=== PATIENT | female | born 1970 | race Caucasian/White ===

== ENCOUNTER 2017-07-08 12:30 | Observation (INO) | payer BC, OTHER ==
[2017-07-08] MEDS ORDERED: Sodium Chloride 0.9% 1,000 ML IV STA (13:08)
--- NOTE | 2017-07-08 13:33 | ED PDOC ---
HPI: General Adult Time Seen by Provider: 07/08/17 12:59 Chief Complaint (Nursing): Weakness/Neurological Deficit Chief Complaint (Provider): headache, near syncope History Per: Patient Additional Complaint(s): 37-year-old female with history of MS presents to emergency department with dizziness and headache that started earlier today. Patient states she woke up this morning "feeling weird" and she had 2 near syncopal episodes at home. Patient states she felt chest pain and palpitations right before each syncopal episode this AM. She states she could feel herself falling and stopped herself each time. She did not sustain any traumatic injury or lose consciousness as a result of near syncopal episodes. Patient states family member drove her to PMD office and PMD advised that she come to ED. Upon arrival patient has headache and pain to left ear and eye with no vision changes. Patient denies chest pain or palpitations upon arrival. PMD: Dr. Monroe Past Medical History Reviewed: Historical Data, Nursing Documentation, Vital Signs Vital Signs: Last Vital Signs Temp 98.1 F 07/08/17 12:46 Pulse 74 07/08/17 12:46 Resp 18 07/08/17 12:46 BP 145/92 H 07/08/17 12:46 Pulse Ox 99 07/08/17 15:21 - Medical History PMH: Anxiety, Asthma, Depression, Kidney Stones - Surgical History Surgical History: Cholecystectomy, - Family History Family History: States: No Known Family Hx - Living Arrangements Living Arrangements: With Family - Social History Current smoker - smoking cessation education provided: No Alcohol: None Drugs: Denies - Home Medications Home Medications: Ambulatory Orders Medication Instructions Recorded No Known Home Med 07/08/17 - Allergies Allergies/Adverse Reactions: Allergies Allergy/AdvReac Type Severity Reaction Status Date / Time latex Allergy RASH Verified 06/20/15 00:55 Review of Systems ROS Statement: Except As Marked, All Systems Reviewed And Found Negative Constitutional: Negative for: Fever, Chills, Weakness ENT: Positive for: Ear Pain (left) Cardiovascular: Positive for: Chest Pain, Palpitations Respiratory: Negative for: Cough Gastrointestinal: Negative for: Nausea, Vomiting Neurological: Positive for: Headache, Dizziness, Other (near syncope). Negative for: Weakness, Numbness, Incoordination, Change in Speech, Confusion, Seizures Physical Exam - Reviewed Nursing Documentation Reviewed: Yes Vital Signs Reviewed: Yes - Physical Exam Appears: Positive for: Well, Non-toxic, No Acute Distress Head Exam: Positive for: ATRAUMATIC, NORMAL INSPECTION, NORMOCEPHALIC Skin: Positive for: Normal Color. Negative for: Rash Eye Exam: Positive for: Normal appearance, EOMI, PERRL. Negative for: Nystagmus ENT: Positive for: Normal ENT Inspection Neck: Positive for: Painless ROM Cardiovascular/Chest: Positive for: Regular Rate, Rhythm Respiratory: Positive for: Normal Breath Sounds. Negative for: Respiratory Distress Gastrointestinal/Abdominal: Positive for: Soft. Negative for: Tenderness Back: Positive for: Normal Inspection Extremity: Positive for: Normal ROM Neurologic/Psych: Positive for: Alert, accountant cost II-XII (grossly intact), Oriented, Gait (steady). Negative for: Motor/Sensory Deficits, Aphasia, Facial Droop - Laboratory Results Result Diagrams: 07/08/17 13:48 07/08/17 13:48 - ECG Interpretation Of ECG: NSR 83 bpm, no acute finding, reviewed by PA and ED attending O2 Sat by Pulse Oximetry: 99 Pulse Ox Interpretation: Normal - Other Rad CXR X-Ray: Interpreted by Me, Viewed By Me X-Ray Interpretation: no acute finding CT head X-Ray: Read By Radiologist X-Ray Interpretation: no acute finding Medical Decision Making Medical Decision Makin47 year old with headache and near syncope episode x 2 this AM Plan: CT head EKG CBC CMP Trop IVF Case was d/w Dr. Monroe, PMD, who states to admit patient. Dr. Burden, hsopitalist to admit. Call also placed to Dr. Elizondo, patient's neurologist. He does not see patients in hospital setting and asked that we contact Dr. Camilo for consult. Case was d/w Dr. Nguyen covering for Dr. Camilo, she states to order MRI brain with contrast. Patient is aware of and agrees with admission. Disposition - Clinical Impression Clinical Impression: Near syncope, Chest pain - Patient ED Disposition Is Patient to be Admitted: Yes - Disposition Disposition Time: 16:15 Condition: FAIR - Pt Status Changed To: Hospital Disposition Of: Observation - POA Present On Arrival: None Results - Lab Results Lab Results: 07/08/17 07/08/17 13:48 13:48 WBC 7.0 RBC 4.66 Hgb 14.5 Hct 40.8 MCV 87.6 MCH 31.2 H MCHC 35.6 RDW 12.2 Plt Count 224 MPV 8.9 Neut % (Auto) 63.7 Lymph % (Auto) 28.6 [place] % (Auto) 5.6 Eos % (Auto) 1.0 Baso % (Auto) 1.1 Neut # (Auto) 4.5 Lymph # (Auto) 2.0 [place] # (Auto) 0.4 Eos # (Auto) 0.1 Baso # (Auto) 0.1 Sodium 145 Potassium 4.2 Chloride 105 Carbon Dioxide 25 Anion Gap 19 BUN 9 Creatinine 0.6 L Est GFR ( Amer) > 60 Est GFR (Non-Af Amer) > 60 Random Glucose 100 Calcium 9.6 Total Bilirubin 1.9 H AST 121 H ALT 114 H D Alkaline Phosphatase 81 Troponin I 0.0120 Total Protein 8.0 Albumin 4.3 Globulin 3.7 Albumin/Globulin Ratio 1.2
[2017-07-08 14:06] LABS: BASO # 0.1 K/uL (0.0-0.2); BASO % 1.1 % (0.0-2.0); EOS # 0.1 K/uL (0.0-0.7); HEMOGLOBIN 14.5 g/dL (12.0-16.0); LYMPH % 28.6 % (20.0-40.0); MEAN CELL VOLUME 87.6 fl (81.0-99.0); MEAN CORPUSCULAR HEMOGLOBIN 31.2 pg (27.0-31.0); MEAN CORPUSCULAR HGB CONC 35.6 g/dL (33.0-37.0); MEAN PLATELET VOLUME 8.9 fl (7.2-11.7); MONO # 0.4 K/uL (0.0-0.8); MONO % 5.6 % (0.0-10.0); NEUT # 4.5 K/uL (1.8-7.0); NEUT % 63.7 % (50.0-75.0); NRBC % 0.1 % (0.0-0.0); RBC 4.66 Mil/uL (3.80-5.20); RED CELL DISTRIBUTION WIDTH 12.2 % (11.5-14.5)
--- NOTE | 2017-07-08 14:25 | RAD ---
HISTORY: Chest pain COMPARISON: 05/17/2014 FINDINGS: LUNGS: No active pulmonary disease. PLEURA: No significant pleural effusion identified, no pneumothorax apparent. CARDIOVASCULAR: No radiographic findings to suggest acute or significant cardiovascular disease. OSSEOUS STRUCTURES: Stable position of Anders eleuterio. Stable scoliosis VISUALIZED UPPER ABDOMEN: Normal. OTHER FINDINGS: None. IMPRESSION: No active disease. No significant interval change compared to the prior examination(s).
--- NOTE | 2017-07-08 14:42 | CT ---
PROCEDURE: CT HEAD WITHOUT CONTRAST. HISTORY: headache, near syncope COMPARISON: Unenhanced head CT 06/20/2015. TECHNIQUE: Axial computed tomography images were obtained through the head/brain without intravenous contrast. Radiation dose: Total exam DLP = 799.60 mGy-cm. This CT exam was performed using one or more of the following dose reduction techniques: Automated exposure control, adjustment of the mA and/or kV according to patient size, and/or use of iterative reconstruction technique. FINDINGS: HEMORRHAGE: No intracranial hemorrhage. BRAIN: Normal espinoza-white matter differentiation and density are appreciated throughout the cerebrum and cerebellum with the brainstem appearing unremarkable as well. There is no mass effect. There is no suspicious extra-axial fluid collection and the midline brain anatomy appears diffusely unremarkable. VENTRICLES: Unremarkable. No hydrocephalus. CALVARIUM: Unremarkable. PARANASAL SINUSES: Unremarkable as visualized. No significant inflammatory changes. MASTOID AIR CELLS: Unremarkable as visualized. No inflammatory changes. OTHER FINDINGS: None. IMPRESSION: Stable, unremarkable unenhanced head CT 07/08/2017.
[2017-07-08 15:45] LABS: ALB/GLOB RATIO 1.2 (1.0-2.1); ALBUMIN 4.3 g/dL (3.5-5.0); ALT/SGPT 114 U/L (9-52); AST/SGOT 121 U/L (14-36); BLOOD UREA NITROGEN 9 mg/dl (7-17); CALCIUM 9.6 mg/dL (8.4-10.2); GFR AFRICAN-AMERICAN > 60; GFR NON-AFRICAN AMERICAN > 60
--- NOTE | 2017-07-08 16:35 | CP.PCM.HP ---
History of Present Illness - History of Present Illness History of Present Illness: 47 yo female with history of MS came in because of sudden onset of dizziness earlier today causing her to almost fall down lasting for several seconds accompanied with palpitation, nausea and cold sweat. She was able to recover spontaneously but condition recurred after about 10 minutes. She denied losing consciousness, chest pain or SOB. Present on Admission - Present on Admission Any Indicators Present on Admission: No History of DVT/PE: No History of Uncontrolled Diabetes: No Urinary Catheter: No Decubitus Ulcer Present: No Review of Systems - Review of Systems All systems: reviewed and no additional remarkable complaints except (aside from those mentioned above, 12 point system review were negative by me) Past Patient History - Past Social History Smoking Status: Never Smoked Alcohol: None Drugs: Denies Home Situation {Lives}: With Family - CARDIAC Hx Cardiac Disorders: No - PULMONARY Hx Asthma: Yes - NEUROLOGICAL Hx Multiple Sclerosis: Yes (diagnosed 10 yrs ago) - HEENT Hx HEENT Problems: No - RENAL Hx Kidney Stones: Yes - ENDOCRINE/METABOLIC Hx Endocrine Disorders: No - HEMATOLOGICAL/ONCOLOGICAL Hx Blood Disorders: No - INTEGUMENTARY Hx Dermatological Problems: No - MUSCULOSKELETAL/RHEUMATOLOGICAL Hx Musculoskeletal Disorders: No - GASTROINTESTINAL Hx Gastrointestinal Disorders: No - GENITOURINARY/GYNECOLOGICAL Hx Genitourinary Disorders: No - PSYCHIATRIC Hx Anxiety: Yes Hx Depression: Yes - SURGICAL HISTORY Hx Surgeries: Yes Hx Section: Yes Hx Cholecystectomy: Yes Hx Orthopedic Surgery: Yes (Anders Jorge Luis placement for scoliosis) Other/Comment: kidney stone removal, ovarian cyst surgery - ANESTHESIA Hx Anesthesia: Yes Hx Anesthesia Reactions: No Meds Allergies/Adverse Reactions: Allergies Allergy/AdvReac Type Severity Reaction Status Date / Time latex Allergy RASH Verified 06/20/15 00:55 Physical Exam - Constitutional Appears: No Acute Distress - Head Exam Head Exam: ATRAUMATIC - Eye Exam Eye Exam: absent: Scleral icterus - ENT Exam ENT Exam: Mucous Membranes Moist - Neck Exam Neck exam: Negative for: Meningismus - Respiratory Exam Respiratory Exam: absent: Rales, Rhonchi, Wheezes, Respiratory Distress - Cardiovascular Exam Cardiovascular Exam: REGULAR RHYTHM, +S1, +S2 - GI/Abdominal Exam GI & Abdominal Exam: Soft. absent: Tenderness - Rectal Exam Rectal Exam: Deferred - Extremities Exam Extremities exam: Negative for: calf tenderness, pedal edema - Back Exam Back exam: absent: tenderness - Neurological Exam Neurological exam: Alert, Oriented x3 - Psychiatric Exam Psychiatric exam: Normal Affect - Skin Skin Exam: Dry, Intact Results - Vital Signs Recent Vital Signs: Last Vital Signs Temp 98.1 F 07/08/17 12:46 Pulse 74 07/08/17 12:46 Resp 18 07/08/17 12:46 BP 145/92 H 07/08/17 12:46 Pulse Ox 99 07/08/17 16:16 - Labs Result Diagrams: 07/08/17 13:48 07/08/17 13:48 Labs: Laboratory Results - last 24 hr 07/08/17 07/08/17 13:48 13:48 WBC 7.0 RBC 4.66 Hgb 14.5 Hct 40.8 MCV 87.6 MCH 31.2 H MCHC 35.6 RDW 12.2 Plt Count 224 MPV 8.9 Neut % (Auto) 63.7 Lymph % (Auto) 28.6 [place] % (Auto) 5.6 Eos % (Auto) 1.0 Baso % (Auto) 1.1 Neut # (Auto) 4.5 Lymph # (Auto) 2.0 [place] # (Auto) 0.4 Eos # (Auto) 0.1 Baso # (Auto) 0.1 Sodium 145 Potassium 4.2 Chloride 105 Carbon Dioxide 25 Anion Gap 19 BUN 9 Creatinine 0.6 L Est GFR ( Amer) > 60 Est GFR (Non-Af Amer) > 60 Random Glucose 100 Calcium 9.6 Total Bilirubin 1.9 H AST 121 H ALT 114 H D Alkaline Phosphatase 81 Troponin I 0.0120 Total Protein 8.0 Albumin 4.3 Globulin 3.7 Albumin/Globulin Ratio 1.2 Assessment & Plan - Assessment and Plan (Free Text) Assessment: 47 yo female with history of MS came in because of sudden onset of dizziness earlier today causing her to almost fall down lasting for several seconds accompanied with palpitation, nausea and cold sweat. She was able to recover spontaneously but condition recurred after about 10 minutes. She denied losing consciousness, chest pain or SOB. 1. Pre-syncope probably secondary to vasovagal effect monitor in telemetry serial Troponin and EKG check for orthostatic changes in BP CT of head: unremarkable neuro consult with Dr Nguyen (called by ER) 2. MS stable
[2017-07-08] MEDS ORDERED: Gadodiamide 287 MG/ML VIAL (15ML) IV ONE (16:50)
--- NOTE | 2017-07-08 18:40 | MRI ---
PROCEDURE: MRI BRAIN WITH AND WITHOUT CONTRAST HISTORY: Headache. Near syncope. COMPARISON: Comparison made with prior CT scan brain earlier same day. TECHNIQUE: Multiplanar, multisequence MR images of the brain were obtained with and without intravenous contrast enhancement. 18 cc Omniscan injected for this examination. FINDINGS: HEMORRHAGE: No acute parenchymal, subarachnoid or extra-axial hemorrhage. No evidence of hemosiderin deposition seen on gradient echo weighted sequence. DWI: No evidence of an acute or early subacute infarction seen on diffusion imaging. . BRAIN PARENCHYMA: There are multiple small focal areas of nonenhancing nonspecific increased T2 signal scattered about the deep and subcortical white matter both cerebral hemispheres nonspecific. . A few tiny foci of increased T2 signal within the brainstem present. Questionable tiny focus of increased T2 signal left cerebellar hemisphere. . Findings may represent chronic sequela of small vessel disease however differential diagnosis would include chronic sequela of migraine headache, old trauma or post infectious/inflammatory etiologies. Atypical presentation of a demyelinating disease process not excluded. ENHANCEMENT: No enhancing parenchymal nor extra-axial masses or collections. No evidence of unusual meningeal enhancement. VENTRICLES: No obstructive hydrocephalus. CRANIUM: No acute calvarial abnormalities. ORBITS: Orbits and contents unremarkable. PARANASAL SINUSES/MASTOIDS: Clear VASCULAR SYSTEM: Visualized major vascular flow voids at skull base patent. OTHER FINDINGS: None . IMPRESSION: The no evidence of acute intracranial hemorrhage or infarction. There are multiple tiny focal areas of increased T2 signal scattered about the deep and subcortical white matter both cerebral hemispheres. None of the changes exhibit restricted diffusion or contrast enhancement. In addition, there are a few tiny foci of increased T2 signal in the brainstem and possibly left cerebellar hemisphere. None of these changes exhibit restricted diffusion or contrast enhancement. Rule out chronic sequela of small vessel disease. See above discussion for additional differential diagnostic considerations.
[2017-07-09 06:16] LABS: BASO # 0.1 K/uL (0.0-0.2); BASO % 0.9 % (0.0-2.0); EOS # 0.1 K/uL (0.0-0.7); EOS % 2.2 % (0.0-4.0); LYMPH # 2.7 K/uL (1.0-4.3); LYMPH % 41.4 % (20.0-40.0); MEAN CELL VOLUME 89.9 fl (81.0-99.0); MEAN CORPUSCULAR HEMOGLOBIN 31.2 pg (27.0-31.0); MEAN CORPUSCULAR HGB CONC 34.7 g/dL (33.0-37.0); MEAN PLATELET VOLUME 8.9 fl (7.2-11.7); MONO # 0.7 K/uL (0.0-0.8); NEUT # 2.9 K/uL (1.8-7.0); NEUT % 44.5 % (50.0-75.0); NRBC % 0.2 % (0.0-0.0); RBC 4.19 Mil/uL (3.80-5.20); WHITE BLOOD COUNT 6.5 K/uL (4.8-10.8)
[2017-07-09 06:39] LABS: ALB/GLOB RATIO 1.1 (1.0-2.1); ALBUMIN 3.6 g/dL (3.5-5.0); ALT/SGPT 97 U/L (9-52); AST/SGOT 78 U/L (14-36); BILIRUBIN,DIRECT 0.2 mg/ml (0.0-0.4); BLOOD UREA NITROGEN 13 mg/dl (7-17); CALCIUM 9.4 mg/dL (8.4-10.2); GFR AFRICAN-AMERICAN > 60; GFR NON-AFRICAN AMERICAN > 60
[2017-07-09] MEDS: Pantoprazole 40 mg EC Tab PO SCH (09:23)
--- NOTE | 2017-07-09 10:45 | US ---
HISTORY: elevated LFTs COMPARISON: None. TECHNIQUE: Sonographic evaluation of the right upper quadrant of the abdomen. FINDINGS: LIVER: Measures 15.8 cm in length. Hepatopedal blood flow. Fatty infiltration manifest ultrasonographically as increased echogenicity of the liver parenchyma. No mass. No intrahepatic bile duct dilatation. GALLBLADDER: Status post cholecystectomy. No abnormality is seen in the gallbladder fossa. COMMON BILE DUCT: Measures 3.5 mm. No stones. No dilatation. PANCREAS: Unremarkable as visualized. No mass. No ductal dilatation. RIGHT KIDNEY: Measures 5.5 x 10.5 cm in length. Normal echogenicity. No calculus, mass, or hydronephrosis. AORTA: No aneurysmal dilatation. IVC: Unremarkable. OTHER FINDINGS: None . IMPRESSION: Stable hepatic steatosis without focal abnormality. No significant interval change compared to the prior examination(s).
--- NOTE | 2017-07-09 11:46 | CARD ---
APPROVED REPORT EKG Measurement Heart [id number] ID [id number] <Conclusion> Normal sinus rhythm Inferior infarct, age undetermined Cannot rule out Anterior infarct, age undetermined Abnormal ECG
[2017-07-09 17:12] LABS: BARBITURATES, UR NEGATIVE (NEGATIVE); BENZODIAZEPINES, UR NEGATIVE (NEGATIVE); OPIATES, UR NEGATIVE (NEGATIVE); PHENCYCLIDINE, UR NEGATIVE (NEGATIVE)
[2017-07-09 17:21] LABS: HDL CHOLESTEROL 42 MG/DL (30-70)
[2017-07-09 17:32] LABS: LDL CHOLESTEROL 117 mg/dL (0-129)
[2017-07-09 17:36] LABS: PARTIAL THROMBOPLASTIN TIME 30.2 Seconds (25.6-37.1); PROTHROMBIN TIME 11.5 Seconds (9.8-13.1)
--- NOTE | 2017-07-09 17:44 | CP.PCM.CON ---
History of Present Illness - History of Present Illness History of Present Illness: 47 yr old right handed woman with a history of being diagnosed with MS about 10 years ago, who now presents with new onset dizziness and a syncopal spell. MIss salazar says that about 10 years ago, she started to have word finding difficulty with confusion and after seeing , and obtinaing MRI Brain, was found to have MS, told it was mild. She never started medications , but last summer she had a resurgence of forgetfulness, with some tingling in her legs bilaterally. MRI brain was redone and it showed multiple enhancing lesions, in the frontal lobe and throughout cortex. It is unclear if she had MRI c spine and the results. Today, she says that she had some blurriness of vision as well, but it resolved. She denies headaches, aphasia, weakness, ataxia or urinary incontinence. PMH /pSH: as above. FH/SH: , has a 20 yr old daughter. All: nkda ON exam: normal neurological examination. speech fluent. no aphasia, no alexia, no apraxia. NO ana maria, no visual field cuts. +2 dtr ul and ll bl. Toes downgoing, no clonus. Past Patient History - Past Medical History & Family History Past Medical History?: Yes - Past Social History Smoking Status: Never Smoked - CARDIAC Hx Cardiac Disorders: No - PULMONARY Hx Respiratory Disorders: Yes Hx Asthma: Yes - NEUROLOGICAL Hx Neurological Disorder: Yes Hx Multiple Sclerosis: Yes (diagnosed 10 yrs ago) - HEENT Hx HEENT Problems: No - RENAL Hx Chronic Kidney Disease: Yes Hx Kidney Stones: Yes - ENDOCRINE/METABOLIC Hx Endocrine Disorders: No - HEMATOLOGICAL/ONCOLOGICAL Hx Blood Disorders: No - INTEGUMENTARY Hx Dermatological Problems: No - MUSCULOSKELETAL/RHEUMATOLOGICAL Hx Musculoskeletal Disorders: No Hx Falls: No - GASTROINTESTINAL Hx Gastrointestinal Disorders: No - GENITOURINARY/GYNECOLOGICAL Hx Genitourinary Disorders: No - PSYCHIATRIC Hx Psychophysiologic Disorder: Yes Hx Anxiety: Yes Hx Depression: Yes Hx Substance Use: No - SURGICAL HISTORY Hx Surgeries: Yes Hx Section: Yes Hx Cholecystectomy: Yes Hx Orthopedic Surgery: Yes (Anders Jorge Luis placement for scoliosis) Other/Comment: kidney stone removal, ovarian cyst surgery - ANESTHESIA Hx Anesthesia: Yes Hx Anesthesia Reactions: No Hx Malignant Hyperthermia: No Has any member of the family had a problem w/ anesthesia?: No Meds Allergies/Adverse Reactions: Allergies Allergy/AdvReac Type Severity Reaction Status Date / Time latex Allergy RASH Verified 07/08/17 19:37 - Medications Medications: Current Medications Pantoprazole Sodium (Protonix Ec Tab) 40 mg PO DAILY SHIRAZ Last Admin: 07/09/17 09:23 Dose: 40 mg Results - Vital Signs Recent Vital Signs: Last Vital Signs Temp 97.9 F 07/09/17 16:15 Pulse 78 07/09/17 16:15 Resp 16 07/09/17 16:15 BP 113/76 07/09/17 16:15 Pulse Ox 97 07/09/17 16:15 - Labs Result Diagrams: 07/09/17 04:20 07/09/17 04:20 Labs: Laboratory Results - last 24 hr 07/08/17 07/09/17 07/09/17 21:35 04:20 04:20 WBC 6.5 RBC 4.19 Hgb 13.0 Hct 37.6 MCV 89.9 D MCH 31.2 H MCHC 34.7 RDW 12.0 Plt Count 189 MPV 8.9 Neut % (Auto) 44.5 L Lymph % (Auto) 41.4 H [place] % (Auto) 11.0 H Eos % (Auto) 2.2 Baso % (Auto) 0.9 Neut # (Auto) 2.9 Lymph # (Auto) 2.7 [place] # (Auto) 0.7 Eos # (Auto) 0.1 Baso # (Auto) 0.1 Sodium 145 Potassium 4.0 Chloride 106 Carbon Dioxide 24 Anion Gap 19 BUN 13 Creatinine 0.7 Est GFR ( Amer) > 60 Est GFR (Non-Af Amer) > 60 Random Glucose 125 H Calcium 9.4 Total Bilirubin 1.3 Direct Bilirubin 0.2 AST 78 H D ALT 97 H Alkaline Phosphatase 67 Troponin I < 0.0120 < 0.0120 Total Protein 6.8 Albumin 3.6 Globulin 3.2 Albumin/Globulin Ratio 1.1 Urine HCG, Qual 07/09/17 16:37 WBC RBC Hgb Hct MCV MCH MCHC RDW Plt Count MPV Neut % (Auto) Lymph % (Auto) [place] % (Auto) Eos % (Auto) Baso % (Auto) Neut # (Auto) Lymph # (Auto) [place] # (Auto) Eos # (Auto) Baso # (Auto) Sodium Potassium Chloride Carbon Dioxide Anion Gap BUN Creatinine Est GFR ( Amer) Est GFR (Non-Af Amer) Random Glucose Calcium Total Bilirubin Direct Bilirubin AST ALT Alkaline Phosphatase Troponin I Total Protein Albumin Globulin Albumin/Globulin Ratio Urine HCG, Qual Negative Assessment & Plan - Assessment and Plan (Free Text) Assessment: 47 yr old woman with a diagnosis of MS, who now doesnt have any symptoms at this time. In addition, her MRI Brain is normal. Plan: 1. Discharge home, and follow up with private neurologist. MD Bethany, DPN
--- NOTE | 2017-07-09 19:52 | CP.PCM.PN ---
Subjective - Date & Time of Evaluation Date of Evaluation: 07/09/17 Time of Evaluation: 11:45 - Subjective Subjective: Patient seen and examined. Admitted feeling better although still having mild dizziness when she went to the bathroom today Objective - Vital Signs/Intake and Output Vital Signs (last 24 hours): Temp Pulse Resp BP Pulse Ox 97.9 F 78 16 113/76 97 07/09/17 16:15 07/09/17 16:15 07/09/17 16:15 07/09/17 16:15 07/09/17 16:15 - Medications Medications: Current Medications Pantoprazole Sodium (Protonix Ec Tab) 40 mg PO DAILY SHIRAZ Last Admin: 07/09/17 09:23 Dose: 40 mg - Labs Labs: 07/09/17 04:20 07/09/17 04:20 PT 11.5 Seconds (9.8-13.1) 07/09/17 17:05 INR 1.0 (0.9-1.2) 07/09/17 17:05 APTT 30.2 Seconds (25.6-37.1) 07/09/17 17:05 - Constitutional Appears: No Acute Distress - Head Exam Head Exam: ATRAUMATIC - Eye Exam Eye Exam: absent: Scleral icterus - ENT Exam ENT Exam: Mucous Membranes Moist - Neck Exam Neck Exam: absent: Meningismus - Respiratory Exam Respiratory Exam: absent: Rhonchi, Wheezes, Respiratory Distress - Cardiovascular Exam Cardiovascular Exam: REGULAR RHYTHM, +S1, +S2 - GI/Abdominal Exam GI & Abdominal Exam: Soft. absent: Tenderness - Rectal Exam Rectal Exam: Deferred - Extremities Exam Extremities Exam: absent: Pedal Edema - Neurological Exam Neurological Exam: Alert, Normal Gait - Psychiatric Exam Psychiatric exam: Normal Affect - Skin Skin Exam: Dry, Intact Assessment and Plan - Assessment and Plan (Free Text) Assessment: 47 yo female with history of MS came in because of sudden onset of dizziness earlier today causing her to almost fall down lasting for several seconds accompanied with palpitation, nausea and cold sweat. She was able to recover spontaneously but condition recurred after about 10 minutes. She denied losing consciousness, chest pain or SOB. 1. Pre-syncope probably secondary to vasovagal effect Troponin and EKG: negative CT of head: unremarkable neuro consult with Dr Nguyen (called by ER) ECHO: official report pending cardiology consult with Dr Hannallah venous doppler of both legs, Ddimer was elevated 2. Elevated LFTs maybe secondary to fatty liver which was found on abdominal sonogram patient did not have fever or chills Hepatitis profile 3. MS stable
[2017-07-09] MEDS ORDERED: Iodixanol 320 MG/ML 100 ML BOTTLE IV ONE (20:33)
[2017-07-09] MEDS ORDERED: Sodium Chloride 0.9% 100 ML ONE (20:33)
--- NOTE | 2017-07-09 22:16 | US ---
EXAM: US Duplex Bilateral Lower Extremity Veins CLINICAL HISTORY: 47 years old, female; Abnormal findings; Abnormal lab test; Elevated d-dimer; Additional info: Elevated ddimmer TECHNIQUE: Real-time duplex ultrasound scan of the bilateral lower extremity veins integrating B-mode two-dimensional vascular structure, Doppler spectral analysis, color flow Doppler imaging and compression. COMPARISON: No relevant prior studies available. FINDINGS: Right deep veins: Normal color and spectral Doppler flow. Normal compressibility. No deep vein thrombosis from common femoral to popliteal vein. Right superficial veins: Unremarkable. Left deep veins: Normal color and spectral Doppler flow. Normal compressibility. No deep vein thrombosis from common femoral to popliteal vein. Left superficial veins: Unremarkable. Soft tissues: No popliteal cyst. IMPRESSION: No evidence of DVT within lower extremities.
--- NOTE | 2017-07-09 23:02 | CT ---
EXAM: CT Angiography Chest With Intravenous Contrast CLINICAL HISTORY: 47 years old, female; Signs and symptoms; Other: Pre-syncope, R/O vasovagal cause; Additional info: R/O pe TECHNIQUE: Axial computed tomographic angiography images of the chest with intravenous contrast using pulmonary embolism protocol. All CT scans at this facility use one or more dose reduction techniques, viz.: automated exposure control; ma/kV adjustment per patient size (including targeted exams where dose is matched to indication; i.e. head); or iterative reconstruction technique. MIP reconstructed images were created and reviewed. Coronal and sagittal reformatted images were created and reviewed. CONTRAST: 85 mL of [id number] administered intravenously. COMPARISON: CR - CHEST PORTABLE 2017-07-08 14:00 FINDINGS: Limitations: Streak artifact - mild. Pulmonary arteries: No definite pulmonary embolism. Aorta: No aneurysm. No dissection. Lungs: No consolidation. Few subpleural nodules and/or scarring, up to 0.5 cm. Pleural space: No significant effusion. No pneumothorax. Heart: Borderline cardiomegaly. No significant pericardial effusion. Mediastinum: Small hiatal hernia. Bones/joints: Scoliosis with postsurgical changes. No acute fracture. Soft tissues: Unremarkable. Lymph nodes: No pathologically enlarged lymph nodes. Gallbladder and bile ducts: Cholecystectomy. IMPRESSION: 1. No definite CT evidence of pulmonary embolism. 2. Pulmonary nodules. For low-risk patients, no follow-up is necessary. For high-risk patients (smoking history or other known risk factors) an optional CT at 12 months could be performed. 3. Incidental/non-acute findings are described above.
--- NOTE | 2017-07-09 23:46 | CON ---
CARDIOLOGY CONSULT DATE: REASON FOR CONSULTATION: Dizziness and recurrent falls. 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 At that time, the patient had presents because of speech difficulty and unexplained weakness. Later on further evaluation by her neurologist, diagnosis of multiple sclerosis was made. The patient was not placed on any steroids as far she can remember and does not recall having a lumbar tap. The patient has a history of bronchial asthma that is stable and she does not require nebulizer therapy for it at home. The patient presents because of recurrent falls. The patient did experience dizziness upon standing. She slumped twice to the floor, but did not lose consciousness. She did report her heartbeat was fast. She denies any diaphoresis. She did experience nausea and abdominal discomfort at that time. SOCIAL HISTORY: The patient is a nonsmoker and nondrinker. She is an occupational therapist. MEDICATIONS: The patient does not take any medications at home. CURRENT HOSPITAL MEDICATIONS: Protonix 40 mg twice a day and was given normal saline infusion upon admission. REVIEW OF SYSTEMS: No diarrhea. No fever or chills. The patient did experience chest tightness, but no wheezing. PHYSICAL EXAMINATION: GENERAL: The patient is a middle-age female who does not appear to be in any distress. VITAL SIGNS: Blood pressure 121/80, heart rate 70, temperature 98, and respirations 18. HEENT: Normocephalic. NECK: No JVD. CHEST: Clear. HEART: S1 and S2 regular. ABDOMEN: Soft. EXTREMITIES: No edema. LABORATORY DATA: Three sets of troponins are negative. SMA-7; sodium 145, potassium 4, chloride 106, CO2 of 24, glucose 125, BUN 15, and creatinine 0.7. CBC; WBC 6.5, hemoglobin 13, hematocrit 37.6, and platelet count 189,000. Head CT scan was unremarkable. Brain MRI revealed multiple focal areas were increased to T2 signal, scattered deep and subcortical white matter on both cerebellar hemispheres, none of these changes exhibit restricted diffusion or contrast enhancement. In addition to her few tiny foci, we will increase T2 signal in the brainstem and possibly left cerebellar hemisphere, none of these changes exhibit restricted diffusion or contrast enhancement, rule out chronic sequelae of small vessel disease. EKG revealed sinus rhythm at a rate of 83, poor R wave progression, cannot rule out anterior infarct of indeterminate age. I did review the echocardiographic study and it was remarkable for apical hypokinesis. ASSESSMENT: 1. Recurrent falls. 2. History of multiple sclerosis. 3. Hepatic steatosis focal abnormality seen on the most recent abdominal ultrasound. RECOMMENDATIONS: Continue current oral Protonix. Repeat 12-lead EKG, obtain PT, PTT, d-dimer as well as urine drug screen. I will follow the official report of the echocardiographic study. Jae Burgos MD
--- NOTE | 2017-07-10 08:33 | CP.PCM.PN ---
Subjective - Date & Time of Evaluation Date of Evaluation: 07/10/17 Time of Evaluation: 08:31 - Subjective Subjective: Ms. salazar was seen and examined at the bedside. She is alert, oriented in all spheres. She denies any headache, blurred vision, diplopia, nause, or vomiting. She is able to follow simple commands with no neuro-focal deficits. There was no untoward events overnight. Objective - Vital Signs/Intake and Output Vital Signs (last 24 hours): Temp Pulse Resp BP Pulse Ox 97.3 F L 72 16 117/74 98 07/10/17 04:55 07/10/17 04:55 07/10/17 04:55 07/10/17 04:55 07/10/17 04:55 - Medications Medications: Current Medications Pantoprazole Sodium (Protonix Ec Tab) 40 mg PO DAILY SHIRAZ Last Admin: 07/09/17 09:23 Dose: 40 mg - Labs Labs: 07/09/17 04:20 07/09/17 04:20 PT 11.5 Seconds (9.8-13.1) 07/09/17 17:05 INR 1.0 (0.9-1.2) 07/09/17 17:05 APTT 30.2 Seconds (25.6-37.1) 07/09/17 17:05 - Constitutional Appears: No Acute Distress - Head Exam Head Exam: NORMAL INSPECTION - Neurological Exam Neurological Exam: Alert, Awake, Oriented x3 Neuro motor strength exam: Left Upper Extremity: 5, Right Upper Extremity: 5, Left Lower Extremity: 5, Right Lower Extremity: 5 Additional comments: She is alert, oriented, follow commands. Sensation is intact. Assessment and Plan (1) Multiple sclerosis Assessment & Plan: Case discussed with Dr. Nguyen, recommend to follow up with her private neurologist as an outpatient. Status: Acute (2) Near syncope Assessment & Plan: Case discussed with Dr. Nguyen, recommend to follow any orders from cardiology. Status: Acute
[2017-07-10 08:34] VITALS: RESP 20; O2SAT 97
[2017-07-10] MEDS: Pantoprazole 40 mg EC Tab PO SCH (09:15)
--- NOTE | 2017-07-10 10:39 | US ---
PROCEDURE: Duplex ultrasound of the carotid and vertebral arteries. HISTORY: presyncope COMPARISON: None available. TECHNIQUE: Grayscale and duplex Doppler evaluation of the cervical carotid and vertebral arteries were performed. The common carotid, carotid bifurcations and cervical ICA and proximal ECA were evaluated. The vertebral arteries were evaluated for gross patency and direction. FINDINGS: RIGHT CAROTID ARTERIES: Common Carotid Artery: Normal. Maximal flow velocity of 79.7 cm/s. Carotid Bifurcation: Normal. Internal Carotid Artery:Normal. Maximal flow velocity of 107.3 cm/s. External Carotid Artery (proximal branches): Normal. Maximal flow velocity of 85.1 cm/s. ICA/CCA Ratio: 1.3 LEFT CAROTID ARTERIES: Common Carotid Artery: Normal. Maximal flow velocity of 78.1 cm/s. Carotid Bifurcation: Normal. Internal Carotid Artery:Normal. Maximal flow velocity of 108.1 cm/s. External Carotid Artery (proximal branches): Normal. Maximal flow velocity of 88.6 cm/s. ICA/CCA Ratio: 1.4 VERTEBRAL ARTERIES: Right Vertebral Artery: Patent. Antegrade flow. Left Vertebral Artery: Patent. Antegrade flow. OTHER FINDINGS: None. IMPRESSION: Normal Duplex Doppler of the cervical carotid and vertebral arteries. A preliminary report was provided by [employer].
--- NOTE | 2017-07-10 11:09 | CARD ---
APPROVED REPORT EXAM: Two-dimensional and M-mode echocardiogram with Doppler and color Doppler. Other Information Quality : GoodRhythm : NSR INDICATION Syncope 2D DIMENSIONS IVSd1.02 (0.7-1.1cm)LVDd4.47 (3.9-5.9cm) LVOT Diameter1.96 (1.8-2.4cm)PWd0.93 (0.7-1.1cm) IVSs0.98 (0.8-1.2cm)LVDs3.34 (2.5-4.0cm) FS (%) 25.3 %PWs1.27 (0.8-1.2cm) M-Mode DIMENSIONS Left Atrium (MM)3.86 (2.5-4.0cm)IVSd0.85 (0.7-1.1cm) Aortic Root2.90 (2.2-3.7cm)LVDd5.21 (4.0-5.6cm) Aortic Cusp Exc.1.85 (1.5-2.0cm)PWd0.94 (0.7-1.1cm) IVSs1.49 cmFS (%) 44 % LVDs2.92 (2.0-3.8cm)PWs1.57 cm Mitral Valve MV E Gtisokte17.0cm/sMV DECEL [id number] A Mhsfhryn36.5cm/s MV EUG84thF/A ratio1.7MVA (PHT)4.26cm2 TDI Lateral E' Peak V11.33cm/sMedial E' Peak V9.21cm/sE/Lateral E'6.3 E/Medial E'7.7 Pulmonary Valve PV Peak Zhgpfgqv232.7cm/s LEFT VENTRICLE The left ventricle is normal size. There is normal left ventricular wall thickness. The left ventricular function is normal. The left ventricular ejection fraction is 60% There is normal LV segmental wall motion. The left ventricular diastolic function is normal. No left ventricle thrombus noted on this study. There is no ventricular septal defect visualized. There is no left ventricular aneurysm. There is no mass noted in the left ventricle. RIGHT VENTRICLE The right ventricle is normal size. There is normal right ventricular wall thickness. The right ventricular systolic function is normal. ATRIA The left atrium size is normal. The right atrium size is normal. The interatrial septum is intact with no evidence for an atrial septal defect. AORTIC VALVE The aortic valve is normal in structure. No aortic regurgitation is present. There is no aortic valvular stenosis. There is no aortic valvular vegetation. MITRAL VALVE The mitral valve is normal in structure. There is no evidence of mitral valve prolapse. There is no mitral valve stenosis. There is no mitral valve regurgitation noted. TRICUSPID VALVE The tricuspid valve is normal in structure. There is no tricuspid valve regurgitation noted. There is no tricuspid valve prolapse or vegetation. There is no tricuspid valve stenosis. PULMONIC VALVE The pulmonary valve is normal in structure. There is no pulmonic valvular regurgitation. There is no pulmonic valvular stenosis. GREAT VESSELS The aortic root is normal in size. The ascending aorta is normal in size. The IVC is normal in size and collapses >50% with inspiration. PERICARDIAL EFFUSION The pericardium appears normal. There is no pleural effusion. <Conclusion> Normal Echocardiogram
[2017-07-10 12:00] VITALS: BP 142/92; PULSE 76; TEMP 98
[2017-07-10 12:20] LABS: HEPATITIS B SURFACE AG Negative (NEGATIVE)
[2017-07-10 12:26] LABS: HEPATITIS A IGM NEGATIVE (NEGATIVE); HEPATITIS B CORE AB NEGATIVE (NEGATIVE)
[2017-07-10 12:37] LABS: HEPATITIS C ANTIBODY NEGATIVE (NEGATIVE)
--- NOTE | 2017-07-10 14:01 | CP.PCM.DIS ---
Provider - Provider Date of Admission: 07/09/17 14:44 Attending physician: Roddy Burden MD Primary care physician: Dr Monroe Consults: Neurology : Dr Nguyen Cardio: Dr Burgos Time Spent in preparation of Discharge (in minutes): 30 Diagnosis - Discharge Diagnosis (1) Near syncope Status: Acute (2) Multiple sclerosis Status: Acute Hospital Course - Lab Results Lab Results: Most Recent Lab Values WBC 6.5 K/uL (4.8-10.8) 07/09/17 04:20 RBC 4.19 Mil/uL (3.80-5.20) 07/09/17 04:20 Hgb 13.0 g/dL (12.0-16.0) 07/09/17 04:20 Hct 37.6 % (34.0-47.0) 07/09/17 04:20 MCV 89.9 fl (81.0-99.0) D 07/09/17 04:20 MCH 31.2 pg (27.0-31.0) H 07/09/17 04:20 MCHC 34.7 g/dL (33.0-37.0) 07/09/17 04:20 RDW 12.0 % (11.5-14.5) 07/09/17 04:20 Plt Count 189 K/uL (130-400) 07/09/17 04:20 MPV 8.9 fl (7.2-11.7) 07/09/17 04:20 Neut % (Auto) 44.5 % (50.0-75.0) L 07/09/17 04:20 Lymph % (Auto) 41.4 % (20.0-40.0) H 07/09/17 04:20 Tama % (Auto) 11.0 % (0.0-10.0) H 07/09/17 04:20 Eos % (Auto) 2.2 % (0.0-4.0) 07/09/17 04:20 Baso % (Auto) 0.9 % (0.0-2.0) 07/09/17 04:20 Neut # (Auto) 2.9 K/uL (1.8-7.0) 07/09/17 04:20 Lymph # (Auto) 2.7 K/uL (1.0-4.3) 07/09/17 04:20 Tama # (Auto) 0.7 K/uL (0.0-0.8) 07/09/17 04:20 Eos # (Auto) 0.1 K/uL (0.0-0.7) 07/09/17 04:20 Baso # (Auto) 0.1 K/uL (0.0-0.2) 07/09/17 04:20 PT 11.5 Seconds (9.8-13.1) 07/09/17 17:05 INR 1.0 (0.9-1.2) 07/09/17 17:05 APTT 30.2 Seconds (25.6-37.1) 07/09/17 17:05 D-Dimer, Quantitative 2000 ng/mlDDU (0-230) H 07/09/17 17:05 Sodium 145 mmol/l (132-148) 07/09/17 04:20 Potassium 4.0 MMOL/L (3.6-5.0) 07/09/17 04:20 Chloride 106 mmol/L (98-107) 07/09/17 04:20 Carbon Dioxide 24 mmol/L (22-30) 07/09/17 04:20 Anion Gap 19 (10-20) 07/09/17 04:20 BUN 13 mg/dl (7-17) 07/09/17 04:20 Creatinine 0.7 mg/dl (0.7-1.2) 07/09/17 04:20 Est GFR ( Amer) > 60 07/09/17 04:20 Est GFR (Non-Af Amer) > 60 07/09/17 04:20 Random Glucose 125 mg/dL (65-105) H 07/09/17 04:20 Calcium 9.4 mg/dL (8.4-10.2) 07/09/17 04:20 Total Bilirubin 1.3 mg/dl (0.2-1.3) 07/09/17 04:20 Direct Bilirubin 0.2 mg/ml (0.0-0.4) 07/09/17 04:20 AST 78 U/L (14-36) H D 07/09/17 04:20 ALT 97 U/L (9-52) H 07/09/17 04:20 Alkaline Phosphatase 67 U/L (38-126) 07/09/17 04:20 Troponin I < 0.0120 ng/mL (0.00-0.120) 07/09/17 04:20 Total Protein 6.8 G/DL (6.3-8.2) 07/09/17 04:20 Albumin 3.6 g/dL (3.5-5.0) 07/09/17 04:20 Globulin 3.2 gm/dL (2.2-3.9) 07/09/17 04:20 Albumin/Globulin Ratio 1.1 (1.0-2.1) 07/09/17 04:20 Triglycerides 218 mg/DL (0-149) H 07/09/17 15:28 Cholesterol 204 mg/dL (0-199) H 07/09/17 15:28 LDL Cholesterol Direct 117 mg/dL (0-129) 07/09/17 15:28 HDL Cholesterol 42 MG/DL (30-70) 07/09/17 15:28 Urine HCG, Qual Negative (NEGATIVE) 07/09/17 16:37 Urine Opiates Screen Negative (NEGATIVE) 07/09/17 16:37 Urine Methadone Screen Negative (NEGATIVE) 07/09/17 16:37 Ur Barbiturates Screen Negative (NEGATIVE) 07/09/17 16:37 Ur Phencyclidine Scrn Negative (NEGATIVE) 07/09/17 16:37 Ur Amphetamines Screen Negative (NEGATIVE) 07/09/17 16:37 U Benzodiazepines Scrn Negative (NEGATIVE) 07/09/17 16:37 U Oth Cocaine Metabols Negative (NEGATIVE) 07/09/17 16:37 U Cannabinoids Screen Negative (NEGATIVE) 07/09/17 16:37 Hepatitis A IgM Ab Negative (NEGATIVE) 07/09/17 20:18 Hep Bs Antigen Negative (NEGATIVE) 07/09/17 20:18 Hep B Core IgM Ab Negative (NEGATIVE) 07/09/17 20:18 Hepatitis C Antibody Negative (NEGATIVE) 07/09/17 20:18 - Hospital Course Hospital Course: 47 yo female with history of MS came in because of sudden onset of dizziness causing her to almost fall down lasting for several seconds accompanied with palpitation, nausea and cold sweat. She was able to recover spontaneously but condition recurred after about 10 minutes. She denied losing consciousness, chest pain or SOB. 1. Near syncope unclear etiology further work up as outpatient Troponin and EKG: negative CT of head: unremarkable MRI : negative neuro consulted with Dr Nguyen ECHO: normal LV function, normal wall motion Carotid Sono; negative CTA of c hest : neg PE cardiology consult with Dr Burgos venous doppler of both legs 2. Elevated LFTs maybe secondary to fatty liver which was found on abdominal sonogram patient did not have fever or chills Hepatitis profile negative 3. Multiple Sclerosis stable ff up with Dr Caro chand Discharge Exam - Head Exam Head Exam: ATRAUMATIC, NORMAL INSPECTION - Eye Exam Eye Exam: EOMI, Normal appearance, PERRL Pupil Exam: NORMAL ACCOMODATION - ENT Exam ENT Exam: Mucous Membranes Moist, Normal External Ear Exam - Neck Exam Neck exam: Full Rom - Respiratory Exam Respiratory Exam: NORMAL BREATHING PATTERN. absent: Respiratory Distress - Cardiovascular Exam Cardiovascular Exam: REGULAR RHYTHM, +S1, +S2 - GI/Abdominal Exam GI & Abdominal Exam: Normal Bowel Sounds, Soft. absent: Tenderness - Extremities Exam Extremities exam: full ROM, normal capillary refill, pedal pulses present - Back Exam Back exam: FULL ROM. absent: CVA tenderness (L), CVA tenderness (R) - Neurological Exam Neurological exam: Alert, CN II-XII Intact, Normal Gait, Oriented x3, Reflexes Normal - Psychiatric Exam Psychiatric exam: Normal Affect, Normal Mood - Skin Skin Exam: Dry, Intact, Normal Color, Warm Discharge Plan - Follow Up Plan Condition: GOOD Disposition: HOME/ ROUTINE Instructions: Chest Pain Additional Instructions: ff up with Dr Caro chand appt with Dr Monroe in 1-2 wks Referrals: Juan Monroe MD [Staff Provider] -
== END 2017-07-10 14:33 | disposition home or self-care (01) ==
LOC: H.ER 12:30 → H.ERHOLD 14:58 → H.TEL 21:43 → OBSVTOIN 07-09 14:44 → INTOOBSV 07-09 14:44
DX: R55 Syncope and collapse (principal); G35 Multiple sclerosis; J45.909 Unspecified asthma, uncomplicated; F41.9 Anxiety disorder, unspecified; R29.6 Repeated falls; K76.0 Fatty (change of) liver, not elsewhere classified; R42 Dizziness and giddiness; Z87.442 Personal history of urinary calculi; Z90.49 Acquired absence of other specified parts of digestive tract
CPT/HCPCS: 36415; 70450; 70553; 71045; 71275; 76705; 80048; 80053; 80061; 80074; 80076; 80324; 80345; 80346; 80349; 80353; 80358; 80361; 81025; 83516; 83520; 83992; 84484; 84703; 85025; 85378; 85610; 85730; 86038; 86160; 86235; 86376; 86431; 93005; 93306; 93880; 93970; 96360; 96361; 99285; A9579; G0378; J7040; Q9967

== ENCOUNTER 2018-03-11 13:16 | Emergency (ER) | payer OTHER ==
[2018-03-11 13:25] VITALS: TEMP 98.7
[2018-03-11 13:49] VITALS: PULSE 88; RESP 16; O2SAT 100
[2018-03-11] MEDS ORDERED: Sodium Chloride 0.45% 1,000 ML IV SCH (14:00)
[2018-03-11 14:20] LABS: BASO % 0.4 % (0.0-2.0); EOS # 0.1 K/uL (0.0-0.7); EOS % 1.9 % (0.0-4.0); HEMOGLOBIN 12.2 g/dL (12.0-16.0); LYMPH # 2.3 K/uL (1.0-4.3); LYMPH % 34.5 % (20.0-40.0); MEAN CELL VOLUME 87.3 fl (81.0-99.0); MEAN CORPUSCULAR HEMOGLOBIN 29.3 pg (27.0-31.0); MEAN CORPUSCULAR HGB CONC 33.6 g/dL (33.0-37.0); MEAN PLATELET VOLUME 8.6 fl (7.2-11.7); MONO # 0.5 K/uL (0.0-0.8); MONO % 7.1 % (0.0-10.0); NEUT # 3.7 K/uL (1.8-7.0); NEUT % 56.1 % (50.0-75.0); RBC 4.17 Mil/uL (3.80-5.20); RED CELL DISTRIBUTION WIDTH 12.3 % (11.5-14.5); WHITE BLOOD COUNT 6.6 K/uL (4.8-10.8)
--- NOTE | 2018-03-11 14:36 | ED PDOC ---
HPI: Hypertension/Hypotension Time Seen by Provider: 03/11/18 13:47 Chief Complaint (Nursing): High Blood Pressure Chief Complaint (Provider): High Blood Pressure History Per: Patient History/Exam Limitations: no limitations Onset/Duration Of Symptoms: Sudden Onset Current Symptoms Are (Timing): Still Present Additional Complaint(s): 47 year old female with pmHx of MS, arrives to ED for an evaluation of high blood pressure. 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 Blood pressure was noted to be high so patient attempted to relax for 1 hour before re-check. However, blood pressure continued to remain constant, thus, prompting ED visit. She additionally reports some intermittent nausea, vomiting, and blurry vision which are chronic conditions secondary to Hx of MS. She denies any acute visual changes, chest pain, shortness of breath, or dizziness. Patient states she is compliant with immunomodulators, does not have a Hx of prior HTN, and follows with a GI specialist for nausea and vomiting. PCP: Dr. Shubham Flores Past Medical History Reviewed: Historical Data, Nursing Documentation, Vital Signs Vital Signs: Last Vital Signs Temp 98.7 F 03/11/18 13:24 Pulse 88 03/11/18 13:48 Resp 16 03/11/18 13:48 BP 145/79 03/11/18 13:48 Pulse Ox 100 03/11/18 13:48 - Medical History PMH: Anxiety, Asthma, Depression, Kidney Stones, Multiple Sclerosis (diagnosed 10 yrs ago), Chronic Kidney Disease - Surgical History Surgical History: Cholecystectomy, - Family History Family History: States: Unknown Family Hx - Social History Current smoker - smoking cessation education provided: No Alcohol: None Drugs: Denies - Home Medications Home Medications: Ambulatory Orders Medication Instructions Recorded RX: No Known Home Med 07/08/17 - Allergies Allergies/Adverse Reactions: Allergies Allergy/AdvReac Type Severity Reaction Status Date / Time latex Allergy RASH Verified 03/11/18 13:26 Review of Systems ROS Statement: Except As Marked, All Systems Reviewed And Found Negative Eyes: Positive for: Pain (burning sensation bilaterally), Other (chronic intermittent blurriness secondary to MS). Negative for: Vision Change (acute) Cardiovascular: Negative for: Chest Pain Respiratory: Negative for: Shortness of Breath Gastrointestinal: Positive for: Nausea, Vomiting Neurological: Positive for: Headache (left-sided). Negative for: Dizziness Physical Exam - Reviewed Nursing Documentation Reviewed: Yes Vital Signs Reviewed: Yes - Physical Exam Appears: Positive for: Well, Non-toxic, No Acute Distress Head Exam: Positive for: ATRAUMATIC, NORMAL INSPECTION, NORMOCEPHALIC Skin: Positive for: Normal Color Eye Exam: Positive for: Normal appearance, EOMI, PERRL ENT: Positive for: Normal ENT Inspection Neck: Positive for: Normal Cardiovascular/Chest: Positive for: Regular Rate, Rhythm, Chest Non Tender. Negative for: Murmur, Bradycardia, Tachycardia Respiratory: Positive for: Normal Breath Sounds. Negative for: Decreased Breath Sounds, Wheezing, Respiratory Distress Gastrointestinal/Abdominal: Positive for: Normal Exam, Soft. Negative for: Tenderness Extremity: Positive for: Normal ROM (upper/lower). Negative for: Pedal Edema (bilateral), Calf Tenderness (bilateral) Neurologic/Psych: Positive for: Alert, retail event assistant II-XII (grossly intact), Oriented (x3), Gait (steady). Negative for: Motor/Sensory Deficits, Aphasia - Laboratory Results Result Diagrams: 03/11/18 14:05 03/11/18 14:05 - ECG O2 Sat by Pulse Oximetry: 100 (RA) Pulse Ox Interpretation: Normal Medical Decision Making Medical Decision Making: Initial Impression: 47 year old female with hypertension Initial Plan: * CT head without contrast * CT maxillofacial without contrast * Labs * IV fluids * Toradol 30mg IV * Zofran 4mg IV Time: 1459 --CT head FINDINGS: HEMORRHAGE: No intracranial hemorrhage. BRAIN: No mass effect or edema. No atrophy or chronic microvascular ischemic changes. VENTRICLES: Unremarkable. No hydrocephalus. CALVARIUM: Unremarkable. PARANASAL SINUSES: Unremarkable as visualized. No significant inflammatory changes. MASTOID AIR CELLS: Unremarkable as visualized. No inflammatory changes. OTHER FINDINGS: None. IMPRESSION: No acute intracranial abnormalities. No significant findings to account for the clinical presentation. No significant interval change compared to the prior examination(s). Time: 1504 --CT maxillofacial FINDINGS: NASAL BONES: Unremarkable. ORBITS: Unremarkable. PARANASAL SINUSES/ MASTOIDS: Clear. MAXILLA: Unremarkable. MANDIBLE/ TEMPOROMANDIBULAR JOINTS: Unremarkable. SKULL BASE: Unremarkable. TEMPORAL BONES: Middle ears and mastoid grossly unremarkable. OTHER FINDINGS: Innumerable small lymph nodes in the neck bilaterally none larger than 1 cm therefore likely infectious/inflammatory. IMPRESSION: No significant or acute findings to account for/ related to the clinical presentation. Additional benign and/or incidental findings described above. BP improved, followup PMD for BP check and further testing. Scribe Attestation: Documented by Ayah Banerjee, acting as a scribe for Dave Chawla III, DO. Provider Scribe Attestation: All medical record entries made by the Scribe were at my direction and personally dictated by me. I have reviewed the chart and agree that the record accurately reflects my personal performance of the history, physical exam, medical decision making, and the department course for this patient. I have also personally directed, reviewed, and agree with the discharge instructions and disposition. Disposition - Clinical Impression Clinical Impression: Headache, Elevated blood pressure reading - Patient ED Disposition Is Patient to be Admitted: No Counseled Patient/Family Regarding: Studies Performed, Diagnosis, Need For Followup - Disposition Referrals: Juan Monroe MD [Staff Provider] - Disposition: Routine/Home Disposition Time: 15:55 Condition: STABLE Additional Instructions: Followup with PMD in 2-3 days, return to ER for any worse or new symptoms/. Instructions: Headache, Adult, Hypertension (ED) Forms: [employer] (Turkish)
[2018-03-11 14:45] LABS: ALB/GLOB RATIO 1.2 (1.0-2.1); ALT/SGPT 48 U/L (9-52); AST/SGOT 51 U/L (14-36); BLOOD UREA NITROGEN 11 mg/dl (7-17); CALCIUM 9.1 mg/dL (8.4-10.2); GFR NON-AFRICAN AMERICAN > 60
--- NOTE | 2018-03-11 15:04 | CT ---
Date of service: 03/11/2018 PROCEDURE: CT HEAD WITHOUT CONTRAST. HISTORY: r/o ICH COMPARISON: 07/08/2017. CT head TECHNIQUE: Axial computed tomography images were obtained through the head/brain without intravenous contrast. Supplemental Coronal and Sagittal projections created and reviewed. Radiation dose: Total exam DLP = 783.92 mGy-cm. This CT exam was performed using one or more of the following dose reduction techniques: Automated exposure control, adjustment of the mA and/or kV according to patient size, and/or use of iterative reconstruction technique. FINDINGS: HEMORRHAGE: No intracranial hemorrhage. BRAIN: No mass effect or edema. No atrophy or chronic microvascular ischemic changes. VENTRICLES: Unremarkable. No hydrocephalus. CALVARIUM: Unremarkable. PARANASAL SINUSES: Unremarkable as visualized. No significant inflammatory changes. MASTOID AIR CELLS: Unremarkable as visualized. No inflammatory changes. OTHER FINDINGS: None. IMPRESSION: No acute intracranial abnormalities. No significant findings to account for the clinical presentation. No significant interval change compared to the prior examination(s).
--- NOTE | 2018-03-11 15:08 | CT ---
Date of service: 03/11/2018 PROCEDURE: CT MAXILLOFACIAL BONES WITHOUT CONTRAST HISTORY: Facial Pain. No history of recent/ related trauma provided COMPARISON: None available. TECHNIQUE: Contiguous axial CT images of the maxillofacial bones were obtained. Coronal and sagittal reformats were generated. Radiation dose: Total exam DLP = 726.1 mGy-cm. This CT exam was performed using one or more of the following dose reduction techniques: Automated exposure control, adjustment of the mA and/or kV according to patient size, and/or use of iterative reconstruction technique. FINDINGS: NASAL BONES: Unremarkable. ORBITS: Unremarkable. PARANASAL SINUSES/ MASTOIDS: Clear. MAXILLA: Unremarkable. MANDIBLE/ TEMPOROMANDIBULAR JOINTS: Unremarkable. SKULL BASE: Unremarkable. TEMPORAL BONES: Middle ears and mastoid grossly unremarkable. OTHER FINDINGS: Innumerable small lymph nodes in the neck bilaterally none larger than 1 cm therefore likely infectious/inflammatory. IMPRESSION: No significant or acute findings to account for/ related to the clinical presentation. Additional benign and/or incidental findings described above.
[2018-03-11 15:57] VITALS: BP 128/95
== END 2018-03-11 15:55 | disposition home or self-care (01) ==
LOC: H.ER 13:16
DX: R51 Headache (principal); I10 Essential (primary) hypertension; Z86.59 Personal history of other mental and behavioral disorders; G35 Multiple sclerosis; I12.9 Hypertensive chronic kidney disease with stage 1 through stage 4 chronic kidney disease, or unspecified chronic kidney disease; J45.909 Unspecified asthma, uncomplicated; Z87.442 Personal history of urinary calculi; N18.9 Chronic kidney disease, unspecified